=== PATIENT | male | born 1950 | race Caucasian/White ===

== ENCOUNTER 2020-04-17 09:13 | Emergency (ER) | payer MEDICARE ==
[~2020-04-17 09:13] MED LIST: ASPIRIN CHEWABL81 MG PO; ASPIRIN EC81 MG PO; CATAPRES0.2 MG PO; CEFUROXIME500 MG PO; FLOMAX 0.4 MG0.4 MG PO; LIPITOR TAB 2020 MG PO; NO HOME MEDICATIONS; NORVASC10 MG PO; PERCOCET 5/325 T1 EA PO
[2020-04-17 10:44] LABS: HEMOGLOBIN 15.5 gm/dl (14.0-17.5); RED BLOOD COUNT 5.05 M/UL (4.20-5.50); WHITE BLOOD COUNT 16.8 K/UL (4.5-11.0)
[2020-04-17 10:53] LABS: BUN/CREATININE RATIO 16 (0-10)
== END 2020-04-17 14:47 | disposition other institution (70) ==
LOC: ER1 09:13
PROVIDERS: Emergency Medicine
DX: K62.5 Hemorrhage of anus and rectum (principal); N17.9 Acute kidney failure, unspecified; U07.1 COVID-19; D72.829 Elevated white blood cell count, unspecified; I25.10 Atherosclerotic heart disease of native coronary artery without angina pectoris; R10.84 Generalized abdominal pain; M54.5 Low back pain; M54.2 Cervicalgia; M25.562 Pain in left knee; R42 Dizziness and giddiness; I10 Essential (primary) hypertension; F17.200 Nicotine dependence, unspecified, uncomplicated; Z86.69 Personal history of other diseases of the nervous system and sense organs; Z86.79 Personal history of other diseases of the circulatory system; Z95.1 Presence of aortocoronary bypass graft; Z95.0 Presence of cardiac pacemaker; W18.11XA Fall from or off toilet without subsequent striking against object, initial encounter
CPT/HCPCS: 70450; 71045; 72125; 73564; 80053; 82550; 82553; 83874; 84484; 85025; 85610; 85730; 87040; 93005; 96365; 99284; J0696; Q9967; U0002

== ENCOUNTER → 2020-07-29 | Outpatient (CLI) | payer MEDICARE | LOC: EXRD 11:23 | DX: M79.632 Pain in left forearm (principal) | CPT/HCPCS: 73110 ==

== ENCOUNTER 2021-02-19 12:04 | Emergency (ER) | payer MEDICARE ==
[2021-02-19] MEDS ORDERED: DOXYCYCLINE HY100 MG PO (13:26)
[2021-02-19] MEDS ORDERED: OMNICEF 300 MG300 MG PO (13:26)
[2021-02-19] MEDS ORDERED: SILVADENE20 GM TP (13:26)
== END 2021-02-19 13:43 | disposition home or self-care (01) ==
LOC: ER1 12:04
DX: T22.20XA Burn of second degree of shoulder and upper limb, except wrist and hand, unspecified site, initial encounter (principal); T31.0 Burns involving less than 10% of body surface; F17.200 Nicotine dependence, unspecified, uncomplicated; I10 Essential (primary) hypertension; I25.10 Atherosclerotic heart disease of native coronary artery without angina pectoris; F03.90 Unspecified dementia, unspecified severity, without behavioral disturbance, psychotic disturbance, mood disturbance, and anxiety; Z95.0 Presence of cardiac pacemaker; Z86.59 Personal history of other mental and behavioral disorders; X08.8XXA Exposure to other specified smoke, fire and flames, initial encounter
CPT/HCPCS: 16020; 90715; 96374; 99283; J0696